=== PATIENT | female | born 1980 | race Caucasian/White ===

== ENCOUNTER 2023-08-15 08:00 | Day surgery (SDC) | payer OTHER ==
[2023-08-05 11:22] LABS: HEMATOCRIT 37.7 % (36.0-45.00); HEMOGLOBIN 12.9 g/dL (12.0-15.00); MEAN CELL VOLUME 85.7 fL (80.00-100.00); MEAN CORPUSCULAR HEMOGLOBIN 29.3 pg (27.00-32.0); MEAN CORPUSCULAR HGB CONC 34.2 g/dl (32.0-36.0); PLATELET COUNT 287 K/uL (150-450); RED CELL DISTRIBUTION WIDTH 13.9 % (11.5-14.5)
[2023-08-05 11:28] LABS: URINE APPEARANCE Clear; URINE BILIRRUBIN Negative (NEGATIVE); URINE BLOOD Negative; URINE COLOR Yellow; URINE GLUCOSE Negative (NEGATIVE); URINE LEUKOCYTE Negative; URINE NITRATE Negative; URINE PROTEIN Negative (NEGATIVE); URINE UROBILINOGEN 0.2 E.U./dl
[2023-08-05 11:34] LABS: URINE BACTERIA 178.8 uL (0.0-1933); URINE EPITHELIAL CELLS 10.8 uL (0.0-38.8); URINE WBC 3.3 uL (0.0-23.2)
[2023-08-05 11:47] LABS: ALBUMIN 3.7 gm/dL (3.4-5.0); BILIRUBIN TOTAL 0.42 mg/dL (0.3-1.2); CALCIUM 9.5 mg/dL (8.5-10.1); CREATININE SERUM 0.7 mg/dL (0.55-1.02); GFR 90.49; GLOBULINA 3.4 G/DL (2.4-3.5); POTASSIUM 5.01 mEq/L (3.5-5.1); TOTAL PROTEIN 7.1 gm/dL (6.4-8.2)
[2023-08-05 12:04] LABS: PARTIAL THROMBOPLASTIN TIME 29.1 SECONDS (22.0-34.0); PROTHROMBIN TIME 10.5 SECONDS (9.0-11.5)
[~2023-08-15 08:00] MED LIST: PROPRANOLOL 20 MG; VASOTEC20 M1 PO
[2023-08-15] MEDS ORDERED: POVIDONE-IODINE 118 ML BOTT TOP ONE ×3 (14:00→16:45)
[2023-08-15] MEDS ORDERED: CEFAZOLIN SODIUM 1,000 MG VIAL ONE (15:53)
[2023-08-15] MEDS ORDERED: CEFAZOLIN SODIUM 1,000 MG VIAL IV ONE (16:45)
[2023-08-15] MEDS ORDERED: ENALAPRILAT DIHYDRATE 1.25 MG/ML VIAL IV ONE (18:08)
[2023-08-15] MEDS ORDERED: ENALAPRILAT DIHYDRATE 2.5 MG/2 ML VIAL IV ONE (18:29)
[2023-08-15] MEDS ORDERED: hydrALAZINE HCL 20 MG VIAL ONE (19:03)
[2023-08-15] MEDS ORDERED: ONDANSETRON HCL 2 MG/ML VIAL ONE (19:14)
[2023-08-15] MEDS ORDERED: hydrALAZINE HCL 20 MG VIAL IV ONE (19:15)
== END 2023-08-15 20:00 | disposition home or self-care (01) ==
LOC: CIR.AMB 08:00
PROVIDERS: ATTEND Obstetrics & Gynecology
DX: N70.91 Salpingitis, unspecified (principal); R10.2 Pelvic and perineal pain; Z30.2 Encounter for sterilization; Z88.2 Allergy status to sulfonamides